=== PATIENT | female | born 2000 | race Caucasian/White ===

== ENCOUNTER 2024-08-16 15:40 | Emergency (ER) | payer BC ==
[2024-08-16 16:08] VITALS: BP 132/90; PULSE 86
== END 2024-08-16 16:35 | disposition home or self-care (01) ==
LOC: KA.ED 15:40
DX: S52.614A Nondisplaced fracture of right ulna styloid process, initial encounter for closed fracture (principal); Z79.899 Other long term (current) drug therapy; Z88.0 Allergy status to penicillin; W19.XXXA Unspecified fall, initial encounter
CPT/HCPCS: 29125; 73100-RT; 99283-25